=== PATIENT | female | born 1965 | race Native Hawaiian/Other Pacific Islander ===

== ENCOUNTER 2020-04-28 07:14 | Inpatient (IN) ==
[2020-04-28] MEDS ORDERED: Vancomycin 2,000 MG/520 ML IV.SOLN IVPB ONE (08:21)
[2020-04-28] MEDS ORDERED: Piperacillin/Tazobactam 3.375 GM in 0.9 % Sodium Chloride Mini Bag 100 ML IVPB ONE (08:21)
[2020-04-28 08:45] LABS: Basophils # 0.1 K/mcL (0.0-0.2); Basophils % 0.6 %; Eosinophils # 0.2 K/mcL (0.0-0.6); Hematocrit 37.9 % (35.3-44.9); Immature Granulocytes % 1.3 % (0-4); Lymphocytes # 2.4 K/mcL (0.6-4.6); Lymphocytes % 24.4 %; Mean Corpuscular HGB Conc 31.7 g/dL (31.6-35.5); Mean Corpuscular Hemoglobin 28.4 pg (28.0-33.3); Mean Corpuscular Volume 89.6 fL (83.0-100.0); Mean Platelet Volume 9.5 fL (9.4-12.4); Monocytes # 0.9 K/mcL (0.0-1.3); Monocytes % 9.3 %; Neutrophils # 6.1 K/mcL (1.6-8.9); Platelet Count 235 K/mcL (140-400); Red Blood Count 4.23 M/mcL (3.82-4.97); Red Cell Distribution Width 13.9 % (11.5-14.5); Segmented Neutrophils % 62.4 %; White Blood Count 9.8 K/mcL (4.3-11.1)
[2020-04-28 08:59] LABS: BUN/Creatinine Ratio 29 (6-26); Blood Urea Nitrogen 25 mg/dL (6-20); C-Reactive Protein 14 mg/L (Less than 10); Calcium 9.6 mg/dL (8.6-10.3); Carbon Dioxide 22 mEq/L (23-29); Chloride 102 mEq/L (98-107); Glucose 173 mg/dL (70-105); Osmolality,Calculated 289 (280-300); Potassium 4.3 mEq/L (3.5-5.1); Sodium 135 mEq/L (136-145); eGFR For African Americans > 60 (> 60); eGFR For Non-African Americans > 60 (> 60)
[2020-04-28] MEDS ORDERED: *HR* Promethazine 25 MG/ML VIAL IVP PRN (09:44)
[2020-04-28] MEDS ORDERED: Naloxone 0.4 MG/ML INJ IVP PRN (09:44)
[2020-04-28] MEDS ORDERED: *HR* Dextrose 50 % in Water (Vial) 50 ML VIAL IVP PRN (09:46)
[2020-04-28] MEDS ORDERED: D5% in Water 1,000 ML IVC PRN (09:46)
[2020-04-28] MEDS ORDERED: Dextrose Gel 15 GM/37.5 ML TUBE PO PRN ×2 (09:46)
[2020-04-28] MEDS ORDERED: Budesonide/Formoterol 80/4.5 1 PUFF INH IH PRN (10:20)
[2020-04-28] MEDS ORDERED: Albuterol 2.5 MG/3 ML NEBULIZER IH PRN (10:20)
[2020-04-28] MEDS: Gabapentin 300 MG CAPSULE PO SCH ×3 (12:29→21:49)
[2020-04-28] MEDS: *HR* HYDROcodone/Acet 5/325 mg TABLET PO PRN ×2 (12:29→21:49)
[2020-04-28] MEDS: 0.9 % Sodium Chloride 1,000 ML IVC SCH (16:00)
[2020-04-28] MEDS: Piperacillin/Tazobactam 3.375 GM in 0.9 % Sodium Chloride Mini Bag 100 ML IVPB SCH (17:13)
[2020-04-28] MEDS: Insulin LISPRO 300 UNITS/3 ML VIAL SQ SCH ×3 (17:14→21:53)
[2020-04-28] MEDS: *HR* Heparin 5,000 UNIT/ML VIAL SQ SCH ×2 (17:14→21:49)
[2020-04-28] MEDS: lamoTRIgine 100 MG TABLET PO SCH (21:48)
[2020-04-28] MEDS: traZODone 50 MG TABLET PO SCH (21:49)
[2020-04-28] MEDS: Vancomycin 2,000 MG/520 ML IV.SOLN IVPB SCH (21:54)
[2020-04-29] MEDS: Piperacillin/Tazobactam 3.375 GM in 0.9 % Sodium Chloride Mini Bag 100 ML IVPB SCH (00:37)
[2020-04-29 03:35] LABS: Basophils % 0.5 %; Eosinophils # 0.2 K/mcL (0.0-0.6); Eosinophils % 2.4 %; Hematocrit 37.1 % (35.3-44.9); Hemoglobin 11.5 g/dL (11.5-15.4); Immature Granulocytes % 1.2 % (0-4); Lymphocytes % 23.9 %; Mean Corpuscular Hemoglobin 28.4 pg (28.0-33.3); Mean Corpuscular Volume 91.6 fL (83.0-100.0); Mean Platelet Volume 9.8 fL (9.4-12.4); Monocytes # 0.8 K/mcL (0.0-1.3); Monocytes % 9.5 %; Neutrophils # 5.2 K/mcL (1.6-8.9); Platelet Count 234 K/mcL (140-400); Red Blood Count 4.05 M/mcL (3.82-4.97); Red Cell Distribution Width 13.8 % (11.5-14.5); Segmented Neutrophils % 62.5 %; White Blood Count 8.3 K/mcL (4.3-11.1)
[2020-04-29 03:52] LABS: BUN/Creatinine Ratio 26 (6-26); Blood Urea Nitrogen 20 mg/dL (6-20); Calcium 9.5 mg/dL (8.6-10.3); Carbon Dioxide 25 mEq/L (23-29); Chloride 103 mEq/L (98-107); Glucose 196 mg/dL (70-105); Osmolality,Calculated 294 (280-300); Potassium 4.3 mEq/L (3.5-5.1); Sodium 138 mEq/L (136-145); eGFR For African Americans > 60 (> 60); eGFR For Non-African Americans > 60 (> 60)
[2020-04-29] MEDS: 0.9 % Sodium Chloride 1,000 ML IVC SCH (04:38)
[2020-04-29] MEDS: *HR* Heparin 5,000 UNIT/ML VIAL SQ SCH ×3 (04:38→21:05)
[2020-04-29] MEDS: Ascorbic Acid 500 MG TABLET PO SCH (08:55)
[2020-04-29] MEDS: Cholecalciferol (D-3) 1,000 UNIT (25MCG) TABLET PO SCH (08:55)
[2020-04-29] MEDS: lisinopriL 20 MG TABLET PO SCH (08:55)
[2020-04-29] MEDS: *HR* HYDROcodone/Acet 5/325 mg TABLET PO PRN ×2 (08:55→16:13)
[2020-04-29] MEDS: Gabapentin 300 MG CAPSULE PO SCH ×4 (08:55→21:05)
[2020-04-29] MEDS: amLODIPine 5 MG TABLET PO SCH (08:55)
[2020-04-29] MEDS: Vancomycin 2,000 MG/520 ML IV.SOLN IVPB SCH ×2 (08:56→21:22)
[2020-04-29] MEDS: Cefepime HCl 2,000 MG in Water for inj. (sterile) 20 ML IVP SCH ×3 (08:57→23:34)
[2020-04-29] MEDS: Insulin LISPRO 300 UNITS/3 ML VIAL SQ SCH ×4 (08:58→21:23)
[2020-04-29] MEDS ORDERED: (Ezetimibe [Zetia] 10 MG) PO SCH (09:00)
[2020-04-29] MEDS ORDERED: LAMOTRIGINE 400 MG PO SCH (21:00)
[2020-04-29] MEDS: traZODone 50 MG TABLET PO SCH (21:05)
[2020-04-29] MEDS: lamoTRIgine 100 MG TABLET PO SCH (21:05)
[2020-04-29] MEDS ORDERED: Acetaminophen 325 MG TABLET PO ONE (21:27)
[2020-04-30] MEDS: *HR* Heparin 5,000 UNIT/ML VIAL SQ SCH ×3 (05:46→20:17)
[2020-04-30] MEDS: lisinopriL 20 MG TABLET PO SCH (08:15)
[2020-04-30] MEDS: Cholecalciferol (D-3) 1,000 UNIT (25MCG) TABLET PO SCH (08:15)
[2020-04-30] MEDS: Ascorbic Acid 500 MG TABLET PO SCH (08:15)
[2020-04-30] MEDS: amLODIPine 5 MG TABLET PO SCH (08:15)
[2020-04-30] MEDS: Gabapentin 300 MG CAPSULE PO SCH ×4 (08:16→20:16)
[2020-04-30] MEDS: Cefepime HCl 2,000 MG in Water for inj. (sterile) 20 ML IVP SCH ×2 (08:16→16:30)
[2020-04-30] MEDS: Vancomycin 2,000 MG/520 ML IV.SOLN IVPB SCH ×2 (08:16→20:31)
[2020-04-30] MEDS: Insulin LISPRO 300 UNITS/3 ML VIAL SQ SCH ×4 (08:17→20:18)
[2020-04-30] MEDS: *HR* HYDROcodone/Acet 5/325 mg TABLET PO PRN (09:08)
[2020-04-30 11:08] LABS: Estimated Average Glucose 192 mg/dl
[2020-04-30] MEDS: traZODone 50 MG TABLET PO SCH (20:16)
[2020-04-30] MEDS: lamoTRIgine 100 MG TABLET PO SCH (20:17)
[2020-05-01] MEDS: Cefepime HCl 2,000 MG in Water for inj. (sterile) 20 ML IVP SCH ×4 (00:25→23:21)
[2020-05-01] MEDS: *HR* HYDROcodone/Acet 5/325 mg TABLET PO PRN ×2 (00:34→13:43)
[2020-05-01 02:10] LABS: Hematocrit 34.7 % (35.3-44.9); Hemoglobin 11.2 g/dL (11.5-15.4); Mean Corpuscular HGB Conc 32.3 g/dL (31.6-35.5); Mean Corpuscular Hemoglobin 29.6 pg (28.0-33.3); Mean Corpuscular Volume 91.6 fL (83.0-100.0); Mean Platelet Volume 9.4 fL (9.4-12.4); Platelet Count 212 K/mcL (140-400); Red Blood Count 3.79 M/mcL (3.82-4.97); White Blood Count 7.6 K/mcL (4.3-11.1)
[2020-05-01 02:29] LABS: BUN/Creatinine Ratio 24 (6-26); Blood Urea Nitrogen 19 mg/dL (6-20); Calcium 9.3 mg/dL (8.6-10.3); Carbon Dioxide 27 mEq/L (23-29); Chloride 103 mEq/L (98-107); Glucose 175 mg/dL (70-105); Osmolality,Calculated 291 (280-300); Potassium 4.1 mEq/L (3.5-5.1); Sodium 137 mEq/L (136-145); eGFR For African Americans > 60 (> 60); eGFR For Non-African Americans > 60 (> 60)
[2020-05-01] MEDS: *HR* Heparin 5,000 UNIT/ML VIAL SQ SCH ×3 (06:17→20:20)
[2020-05-01] MEDS: Vancomycin 2,000 MG/520 ML IV.SOLN IVPB SCH ×2 (08:39→20:20)
[2020-05-01] MEDS: Gabapentin 300 MG CAPSULE PO SCH ×4 (08:40→20:19)
[2020-05-01] MEDS: Cholecalciferol (D-3) 1,000 UNIT (25MCG) TABLET PO SCH (08:41)
[2020-05-01] MEDS: amLODIPine 5 MG TABLET PO SCH (08:41)
[2020-05-01] MEDS: lisinopriL 20 MG TABLET PO SCH (08:41)
[2020-05-01] MEDS: Ascorbic Acid 500 MG TABLET PO SCH (08:41)
[2020-05-01] MEDS: Insulin LISPRO 300 UNITS/3 ML VIAL SQ SCH ×4 (09:47→20:21)
[2020-05-01] MEDS ORDERED: ROPIVACAINE/PF/NS 0.25% 1 EACH SYRINGE INTRAART ONE (17:10)
[2020-05-01] MEDS ORDERED: Lidocaine HCL 4 ML Topical Solution (Laryng-O-Jet Kit Sterile Pak) TP ONE (17:24)
[2020-05-01] MEDS ORDERED: *HR* Propofol 200 MG/20 ML VIAL IVP ONE ×2 (17:26→17:54)
[2020-05-01] MEDS ORDERED: *HR* FentaNYL (PF) 100 MCG/2 ML VIAL ONE (17:26)
[2020-05-01] MEDS ORDERED: Ondansetron 4 MG/2 ML VIAL ONE (17:27)
[2020-05-01] MEDS ORDERED: Dexamethasone 4 MG/ML VIAL ONE (17:27)
[2020-05-01] MEDS ORDERED: *HR* Rocuronium Bromide 50 MG/5 ML VIAL ONE (17:27)
[2020-05-01] MEDS ORDERED: Lidocaine -MPF 2% 2 ML VIAL ONE (17:27)
[2020-05-01] MEDS ORDERED: *HR* Succinylcholine 200 MG/10 ML VIAL IVP ONE (17:27)
[2020-05-01] MEDS ORDERED: Lidocaine -MPF 4% 5 ML AMPUL ONE (17:32)
[2020-05-01] MEDS ORDERED: Naloxone 0.4 MG/ML INJ IVP PRN ×3 (17:39→18:46)
[2020-05-01] MEDS ORDERED: *HR* FentaNYL (PF) 100 MCG/2 ML VIAL IVP PRN ×2 (17:39→18:46)
[2020-05-01] MEDS ORDERED: Albuterol 2.5 MG/3 ML NEBULIZER IH PRN ×3 (17:39→18:46)
[2020-05-01] MEDS ORDERED: Ondansetron 4 MG/2 ML VIAL IVP ONE ×2 (17:39→18:46)
[2020-05-01] MEDS ORDERED: *HR* Midazolam HCl 2 MG/2 ML VIAL ONE (17:40)
[2020-05-01] MEDS ORDERED: Budesonide/Formoterol 80/4.5 1 PUFF INH IH PRN (18:46)
[2020-05-01] MEDS ORDERED: *HR* Promethazine 25 MG/ML VIAL IVP PRN (18:46)
[2020-05-01] MEDS ORDERED: Dextrose Gel 15 GM/37.5 ML TUBE PO PRN ×2 (18:46)
[2020-05-01] MEDS ORDERED: *HR* Dextrose 50 % in Water (Vial) 50 ML VIAL IVP PRN (18:46)
[2020-05-01] MEDS ORDERED: D5% in Water 1,000 ML IVC PRN (18:46)
[2020-05-01] MEDS: lamoTRIgine 100 MG TABLET PO SCH (20:19)
[2020-05-01] MEDS: traZODone 50 MG TABLET PO SCH (23:07)
[2020-05-02] MEDS: *HR* Heparin 5,000 UNIT/ML VIAL SQ SCH ×3 (05:33→20:47)
[2020-05-02] MEDS: *HR* HYDROcodone/Acet 5/325 mg TABLET PO PRN ×2 (08:58→18:47)
[2020-05-02] MEDS: Cholecalciferol (D-3) 1,000 UNIT (25MCG) TABLET PO SCH (08:59)
[2020-05-02] MEDS: lisinopriL 20 MG TABLET PO SCH (08:59)
[2020-05-02] MEDS: amLODIPine 5 MG TABLET PO SCH (08:59)
[2020-05-02] MEDS: Cefepime HCl 2,000 MG in Water for inj. (sterile) 20 ML IVP SCH ×2 (09:00→16:42)
[2020-05-02] MEDS: Ascorbic Acid 500 MG TABLET PO SCH (09:00)
[2020-05-02] MEDS: Gabapentin 300 MG CAPSULE PO SCH ×4 (09:00→20:48)
[2020-05-02] MEDS: Insulin LISPRO 300 UNITS/3 ML VIAL SQ SCH ×4 (09:01→20:50)
[2020-05-02] MEDS: Vancomycin 2,000 MG/520 ML IV.SOLN IVPB SCH (11:42)
[2020-05-02] MEDS: traZODone 50 MG TABLET PO SCH (20:48)
[2020-05-02] MEDS: lamoTRIgine 100 MG TABLET PO SCH (20:48)
[2020-05-03] MEDS: Cefepime HCl 2,000 MG in Water for inj. (sterile) 20 ML IVP SCH ×3 (00:16→12:49)
[2020-05-03] MEDS: Vancomycin 2,000 MG/520 ML IV.SOLN IVPB SCH ×3 (00:17→23:19)
[2020-05-03 01:20] LABS: Hematocrit 35.1 % (35.3-44.9); Hemoglobin 11.1 g/dL (11.5-15.4); Mean Corpuscular HGB Conc 31.6 g/dL (31.6-35.5); Mean Corpuscular Hemoglobin 28.2 pg (28.0-33.3); Mean Corpuscular Volume 89.3 fL (83.0-100.0); Mean Platelet Volume 9.3 fL (9.4-12.4); Platelet Count 222 K/mcL (140-400); Red Blood Count 3.93 M/mcL (3.82-4.97); Red Cell Distribution Width 13.8 % (11.5-14.5); White Blood Count 7.1 K/mcL (4.3-11.1)
[2020-05-03 01:34] LABS: BUN/Creatinine Ratio 22 (6-26); Blood Urea Nitrogen 19 mg/dL (6-20); Calcium 9.8 mg/dL (8.6-10.3); Carbon Dioxide 26 mEq/L (23-29); Chloride 103 mEq/L (98-107); Glucose 170 mg/dL (70-105); Osmolality,Calculated 288 (280-300); Sodium 136 mEq/L (136-145); eGFR For African Americans > 60 (> 60); eGFR For Non-African Americans > 60 (> 60)
[2020-05-03] MEDS: *HR* Heparin 5,000 UNIT/ML VIAL SQ SCH ×3 (05:07→20:59)
[2020-05-03] MEDS: Insulin LISPRO 300 UNITS/3 ML VIAL SQ SCH ×4 (08:39→20:53)
[2020-05-03] MEDS: lisinopriL 20 MG TABLET PO SCH (08:40)
[2020-05-03] MEDS: Cholecalciferol (D-3) 1,000 UNIT (25MCG) TABLET PO SCH (08:40)
[2020-05-03] MEDS: Gabapentin 300 MG CAPSULE PO SCH ×4 (08:40→20:58)
[2020-05-03] MEDS: amLODIPine 5 MG TABLET PO SCH (08:40)
[2020-05-03] MEDS: Ascorbic Acid 500 MG TABLET PO SCH (08:40)
[2020-05-03] MEDS: metroNIDAZOLE 500 MG TABLET PO SCH ×3 (10:20→20:58)
[2020-05-03] MEDS: polyethylene glycoL 3350 17 GM POWD.PACK PO SCH (12:49)
[2020-05-03] MEDS: *HR* HYDROcodone/Acet 5/325 mg TABLET PO PRN (14:22)
[2020-05-03] MEDS: lamoTRIgine 100 MG TABLET PO SCH (20:59)
[2020-05-03] MEDS: traZODone 50 MG TABLET PO SCH (20:59)
[2020-05-04] MEDS: Cefepime HCl 2,000 MG in Water for inj. (sterile) 20 ML IVP SCH ×3 (01:35→23:20)
[2020-05-04 05:18] LABS: Hematocrit 36.2 % (35.3-44.9); Hemoglobin 11.4 g/dL (11.5-15.4); Mean Corpuscular HGB Conc 31.5 g/dL (31.6-35.5); Mean Corpuscular Hemoglobin 28.4 pg (28.0-33.3); Mean Platelet Volume 9.5 fL (9.4-12.4); Platelet Count 211 K/mcL (140-400); Red Blood Count 4.02 M/mcL (3.82-4.97); Red Cell Distribution Width 13.7 % (11.5-14.5); White Blood Count 6.7 K/mcL (4.3-11.1)
[2020-05-04] MEDS: *HR* Heparin 5,000 UNIT/ML VIAL SQ SCH ×3 (05:31→20:38)
[2020-05-04 05:36] LABS: BUN/Creatinine Ratio 32 (6-26); Blood Urea Nitrogen 23 mg/dL (6-20); Calcium 9.6 mg/dL (8.6-10.3); Carbon Dioxide 27 mEq/L (23-29); Chloride 103 mEq/L (98-107); Glucose 171 mg/dL (70-105); Osmolality,Calculated 292 (280-300); Potassium 4.2 mEq/L (3.5-5.1); Sodium 137 mEq/L (136-145); eGFR For African Americans > 60 (> 60); eGFR For Non-African Americans > 60 (> 60)
[2020-05-04] MEDS: Insulin LISPRO 300 UNITS/3 ML VIAL SQ SCH ×4 (07:45→20:28)
[2020-05-04] MEDS: Gabapentin 300 MG CAPSULE PO SCH ×4 (09:16→20:38)
[2020-05-04] MEDS: metroNIDAZOLE 500 MG TABLET PO SCH ×3 (09:16→20:39)
[2020-05-04] MEDS: Ascorbic Acid 500 MG TABLET PO SCH (09:16)
[2020-05-04] MEDS: amLODIPine 5 MG TABLET PO SCH (09:16)
[2020-05-04] MEDS: Cholecalciferol (D-3) 1,000 UNIT (25MCG) TABLET PO SCH (09:16)
[2020-05-04] MEDS: lisinopriL 20 MG TABLET PO SCH (09:17)
[2020-05-04] MEDS: Vancomycin 2,000 MG/520 ML IV.SOLN IVPB SCH (11:52)
[2020-05-04] MEDS: polyethylene glycoL 3350 17 GM POWD.PACK PO SCH (11:55)
[2020-05-04] MEDS: *HR* HYDROcodone/Acet 5/325 mg TABLET PO PRN (14:46)
[2020-05-04] MEDS: lamoTRIgine 100 MG TABLET PO SCH (20:38)
[2020-05-04] MEDS: traZODone 50 MG TABLET PO SCH (20:39)
[2020-05-05 03:14] LABS: Hematocrit 35.6 % (35.3-44.9); Hemoglobin 11.4 g/dL (11.5-15.4); Mean Corpuscular Hemoglobin 29.3 pg (28.0-33.3); Mean Corpuscular Volume 91.5 fL (83.0-100.0); Mean Platelet Volume 9.4 fL (9.4-12.4); Platelet Count 200 K/mcL (140-400); Red Blood Count 3.89 M/mcL (3.82-4.97); Red Cell Distribution Width 13.9 % (11.5-14.5); White Blood Count 6.9 K/mcL (4.3-11.1)
[2020-05-05 03:37] LABS: BUN/Creatinine Ratio 30 (6-26); Blood Urea Nitrogen 27 mg/dL (6-20); Calcium 9.7 mg/dL (8.6-10.3); Carbon Dioxide 25 mEq/L (23-29); Chloride 101 mEq/L (98-107); Glucose 170 mg/dL (70-105); Osmolality,Calculated 291 (280-300); Potassium 4.2 mEq/L (3.5-5.1); Sodium 136 mEq/L (136-145); eGFR For African Americans > 60 (> 60); eGFR For Non-African Americans > 60 (> 60)
[2020-05-05] MEDS: *HR* Heparin 5,000 UNIT/ML VIAL SQ SCH ×3 (05:25→20:37)
[2020-05-05] MEDS: Ascorbic Acid 500 MG TABLET PO SCH (07:55)
[2020-05-05] MEDS: Cholecalciferol (D-3) 1,000 UNIT (25MCG) TABLET PO SCH (07:55)
[2020-05-05] MEDS: amLODIPine 5 MG TABLET PO SCH (07:56)
[2020-05-05] MEDS: metroNIDAZOLE 500 MG TABLET PO SCH ×3 (07:56→20:35)
[2020-05-05] MEDS: lisinopriL 20 MG TABLET PO SCH (07:56)
[2020-05-05] MEDS: polyethylene glycoL 3350 17 GM POWD.PACK PO SCH (07:56)
[2020-05-05] MEDS: Gabapentin 300 MG CAPSULE PO SCH ×4 (07:56→20:35)
[2020-05-05] MEDS: Insulin LISPRO 300 UNITS/3 ML VIAL SQ SCH ×4 (07:56→20:36)
[2020-05-05] MEDS: Cefepime HCl 2,000 MG in Water for inj. (sterile) 20 ML IVP SCH (11:51)
[2020-05-05] MEDS: *HR* HYDROcodone/Acet 5/325 mg TABLET PO PRN (11:59)
[2020-05-05] MEDS: traZODone 50 MG TABLET PO SCH (20:35)
[2020-05-05] MEDS: lamoTRIgine 100 MG TABLET PO SCH (20:36)
[2020-05-06] MEDS: Cefepime HCl 2,000 MG in Water for inj. (sterile) 20 ML IVP SCH ×2 (02:06→12:30)
[2020-05-06] MEDS: *HR* Heparin 5,000 UNIT/ML VIAL SQ SCH (05:46)
[2020-05-06 08:49] VITALS: BP 124/85
[2020-05-06] MEDS: Insulin LISPRO 300 UNITS/3 ML VIAL SQ SCH ×2 (08:58→12:29)
[2020-05-06] MEDS: Ascorbic Acid 500 MG TABLET PO SCH (08:59)
[2020-05-06] MEDS: lisinopriL 20 MG TABLET PO SCH (08:59)
[2020-05-06] MEDS: polyethylene glycoL 3350 17 GM POWD.PACK PO SCH (08:59)
[2020-05-06] MEDS: amLODIPine 5 MG TABLET PO SCH (09:00)
[2020-05-06] MEDS: Cholecalciferol (D-3) 1,000 UNIT (25MCG) TABLET PO SCH (09:00)
[2020-05-06] MEDS: Gabapentin 300 MG CAPSULE PO SCH ×2 (09:00→12:31)
[2020-05-06] MEDS: metroNIDAZOLE 500 MG TABLET PO SCH (09:00)
== END 2020-05-06 14:16 | disposition home health service (06) | DRG 617 ==
LOC: EMEROOARM 07:14 → 2ANU 09:30 → SUATTDRO 09:30 → 2ANU 11:37
PROVIDERS: ADMIT Family Medicine; ATTEND Internal Medicine

== ENCOUNTER 2021-10-12 12:37 | Inpatient (IN) ==
[2021-10-12] MEDS ORDERED: Budesonide/Formoterol 80/4.5 1 PUFF INH IH PRN (16:06)
[2021-10-12] MEDS ORDERED: NON-FORMULARY MEDICATION 1 EACH EACH (Albuterol Sulfate 18 GM Hfa.Aer.Ad) IH PRN (16:06)
[2021-10-12] MEDS ORDERED: Albuterol 2.5 MG/3 ML NEBULIZER IH PRN (16:06)
[2021-10-12] MEDS ORDERED: Naloxone 0.4 MG/ML INJ IVP PRN (16:12)
[2021-10-12] MEDS ORDERED: D5% in Water 1,000 ML IVC PRN (16:19)
[2021-10-12] MEDS ORDERED: Dextrose Gel 15 GM/37.5 ML TUBE PO PRN ×2 (16:19)
[2021-10-12] MEDS ORDERED: *HR* Dextrose 50 % in Water (Syg) 50 ML SYRINGE IVP PRN (16:19)
[2021-10-12] MEDS: *HR* HYDROcodone/Acet 5/325 mg TABLET PO PRN (17:19)
[2021-10-12] MEDS: *HR* Heparin 5,000 UNIT/ML VIAL SQ SCH (17:19)
[2021-10-12] MEDS: Insulin LISPRO 300 UNITS/3 ML VIAL SUBQ SCH ×2 (17:20→20:39)
[2021-10-12] MEDS: Cefepime HCl 1,000 MG in 0.9 % Sodium Chloride Mini Bag 100 ML IVPB SCH (17:21)
[2021-10-12] MEDS: 0.9 % Sodium Chloride 1,000 ML IVC SCH (17:21)
[2021-10-12 18:42] LABS: BUN/Creatinine Ratio 16 (6-26); Blood Urea Nitrogen 14 mg/dL (6-20); eGFR For African Americans > 60 (> 60); eGFR For Non-African Americans > 60 (> 60)
[2021-10-12] MEDS: Vancomycin 2,000 MG/520 ML IV.SOLN IVPB SCH (20:39)
[2021-10-12] MEDS: lamoTRIgine 100 MG TABLET PO SCH (20:41)
[2021-10-13] MEDS: Cefepime HCl 1,000 MG in 0.9 % Sodium Chloride Mini Bag 100 ML IVPB SCH ×4 (00:24→23:32)
[2021-10-13] MEDS: Nystatin SUSP 5 ML UD.LIQ PO SCH ×5 (00:25→21:23)
[2021-10-13] MEDS: Ondansetron 4 MG/2 ML VIAL IVP PRN ×2 (03:27→13:00)
[2021-10-13] MEDS: *HR* HYDROcodone/Acet 5/325 mg TABLET PO PRN (04:14)
[2021-10-13 04:35] LABS: Hematocrit 34.2 % (35.3-44.9); Hemoglobin 11.1 g/dL (11.5-15.4); Mean Corpuscular HGB Conc 32.5 g/dL (31.6-35.5); Mean Corpuscular Hemoglobin 28.4 pg (28.0-33.3); Mean Corpuscular Volume 87.5 fL (83.0-100.0); Mean Platelet Volume 11.8 fL (9.4-12.4); Platelet Count 119 K/mcL (140-400); Red Blood Count 3.91 M/mcL (3.82-4.97); Red Cell Distribution Width 14.6 % (11.5-14.5); White Blood Count 8.4 K/mcL (4.3-11.1)
[2021-10-13 04:39] LABS: Alanine Aminotransferase 28 Units/L (7-52); Albumin 3.3 g/dL (3.5-5.7); Albumin/Globulin Ratio 0.9 (1.1-2.2); Alkaline Phosphatase 99 Units/L (34-104); Aspartate Amino Transferase 29 Units/L (13-39); BUN/Creatinine Ratio 20 (6-26); Bilirubin,Total 0.4 mg/dL (0.3-1.0); Blood Urea Nitrogen 14 mg/dL (6-20); Calcium 8.6 mg/dL (8.6-10.3); Carbon Dioxide 22 mEq/L (23-29); Chloride 103 mEq/L (98-107); Globulin 3.5 g/dL (2.4-3.5); Glucose 254 mg/dL (70-105); Osmolality,Calculated 291 (280-300); Potassium 3.7 mEq/L (3.5-5.1); Sodium 136 mEq/L (136-145); Total Protein 6.8 g/dL (6.4-8.9); eGFR For African Americans > 60 (> 60); eGFR For Non-African Americans > 60 (> 60)
[2021-10-13] MEDS: *HR* Heparin 5,000 UNIT/ML VIAL SQ SCH ×2 (05:05→16:48)
[2021-10-13 05:39] LABS: Lymphocytes # 1.7 K/mcL (0.6-4.6); Monocytes # 0.8 K/mcL (0.0-1.3); Neutrophils # 5.9 K/mcL (1.6-8.9)
[2021-10-13 05:40] LABS: Platelet Estimate Normal (Normal)
[2021-10-13] MEDS: Insulin LISPRO 300 UNITS/3 ML VIAL SUBQ SCH ×4 (09:01→21:21)
[2021-10-13] MEDS: 0.9 % Sodium Chloride 1,000 ML IVC SCH (09:02)
[2021-10-13] MEDS: Vancomycin 2,000 MG/520 ML IV.SOLN IVPB SCH ×2 (09:03→21:17)
[2021-10-13 10:43] LABS: Estimated Average Glucose 232 mg/dl; Hemoglobin A1C 9.7 %
[2021-10-13] MEDS ORDERED: NON-FORMULARY MEDICATION 1 EACH EACH (Fluticasone/Salmeterol [Advair Hfa 230-21 Mcg Inhale IH SCH (11:45)
[2021-10-13] MEDS ORDERED: Gadolinium Contrast Agent (WT Based) IV PRN (13:00)
[2021-10-13] MEDS: lisinopriL 20 MG TABLET PO SCH (13:04)
[2021-10-13 16:46] LABS: C-Reactive Protein 221 mg/L (Less than 10)
[2021-10-13] MEDS ORDERED: Insulin DETEMIR 100 UNIT/ML X5UNITS SUBQ SCH (21:00)
[2021-10-13] MEDS: lamoTRIgine 100 MG TABLET PO SCH (21:23)
[2021-10-13] MEDS ORDERED: Acetaminophen 325 MG TABLET PO ONE (23:19)
[2021-10-14] MEDS: *HR* Heparin 5,000 UNIT/ML VIAL SQ SCH ×2 (05:28→18:00)
[2021-10-14 07:48] LABS: Basophils % 0.4 %; Eosinophils # 0.1 K/mcL (0.0-0.6); Eosinophils % 0.9 %; Hematocrit 31.2 % (35.3-44.9); Immature Granulocytes % 2.3 % (0-4); Lymphocytes # 1.4 K/mcL (0.6-4.6); Lymphocytes % 15.3 %; Mean Corpuscular HGB Conc 32.1 g/dL (31.6-35.5); Mean Corpuscular Hemoglobin 28.4 pg (28.0-33.3); Mean Corpuscular Volume 88.6 fL (83.0-100.0); Mean Platelet Volume 10.5 fL (9.4-12.4); Monocytes # 0.8 K/mcL (0.0-1.3); Monocytes % 9.1 %; Neutrophils # 6.5 K/mcL (1.6-8.9); Platelet Count 157 K/mcL (140-400); Red Blood Count 3.52 M/mcL (3.82-4.97); Red Cell Distribution Width 14.6 % (11.5-14.5); White Blood Count 9.1 K/mcL (4.3-11.1)
[2021-10-14 08:03] LABS: Alanine Aminotransferase 34 Units/L (7-52); Albumin 3.2 g/dL (3.5-5.7); Alkaline Phosphatase 109 Units/L (34-104); Aspartate Amino Transferase 25 Units/L (13-39); BUN/Creatinine Ratio 15 (6-26); Bilirubin,Total 0.5 mg/dL (0.3-1.0); Blood Urea Nitrogen 10 mg/dL (6-20); Carbon Dioxide 25 mEq/L (23-29); Chloride 101 mEq/L (98-107); Globulin 3.3 g/dL (2.4-3.5); Glucose 269 mg/dL (70-105); Osmolality,Calculated 289 (280-300); Potassium 3.3 mEq/L (3.5-5.1); Sodium 135 mEq/L (136-145); Total Protein 6.5 g/dL (6.4-8.9); eGFR For African Americans > 60 (> 60); eGFR For Non-African Americans > 60 (> 60)
[2021-10-14] MEDS: Insulin LISPRO 300 UNITS/3 ML VIAL SUBQ SCH ×4 (09:35→21:05)
[2021-10-14] MEDS: Cefepime HCl 1,000 MG in 0.9 % Sodium Chloride Mini Bag 100 ML IVPB SCH ×3 (09:36→23:42)
[2021-10-14] MEDS: Aspirin Enteric Coated 81 MG Tablet PO SCH (09:37)
[2021-10-14] MEDS: Nystatin SUSP 5 ML UD.LIQ PO SCH ×4 (09:37→21:12)
[2021-10-14] MEDS: lisinopriL 20 MG TABLET PO SCH (09:37)
[2021-10-14] MEDS: amLODIPine 5 MG TABLET PO SCH (09:38)
[2021-10-14] MEDS: Vancomycin 2,000 MG/520 ML IV.SOLN IVPB SCH (11:22)
[2021-10-14] MEDS ORDERED: Gadolinium Contrast Agent (WT Based) IV PRN (11:41)
[2021-10-14] MEDS ORDERED: GADOBUTROL 30 MMOL/30 ML VIAL IVP ONE (12:33)
[2021-10-14] MEDS: *HR* HYDROcodone/Acet 5/325 mg TABLET PO PRN (15:55)
[2021-10-14] MEDS ORDERED: Insulin DETEMIR 100 UNIT/ML X5UNITS SUBQ SCH (21:00)
[2021-10-14] MEDS: lamoTRIgine 100 MG TABLET PO SCH (21:05)
[2021-10-14] MEDS ORDERED: Acetaminophen 325 MG TABLET PO ONE (21:09)
[2021-10-14] MEDS: polyethylene glycoL 3350 17 GM POWD.PACK PO PRN (23:32)
[2021-10-15] MEDS: *HR* Heparin 5,000 UNIT/ML VIAL SQ SCH ×2 (05:10→17:11)
[2021-10-15] MEDS: Vancomycin 2,000 MG/520 ML IV.SOLN IVPB SCH ×2 (05:10→18:34)
[2021-10-15 07:10] LABS: Alanine Aminotransferase 37 Units/L (7-52); Albumin 3.4 g/dL (3.5-5.7); Alkaline Phosphatase 135 Units/L (34-104); Aspartate Amino Transferase 28 Units/L (13-39); BUN/Creatinine Ratio 16 (6-26); Bilirubin,Total 0.7 mg/dL (0.3-1.0); Blood Urea Nitrogen 11 mg/dL (6-20); Calcium 9.2 mg/dL (8.6-10.3); Carbon Dioxide 26 mEq/L (23-29); Chloride 99 mEq/L (98-107); Globulin 3.5 g/dL (2.4-3.5); Glucose 286 mg/dL (70-105); Osmolality,Calculated 292 (280-300); Potassium 3.5 mEq/L (3.5-5.1); Sodium 136 mEq/L (136-145); Total Protein 6.9 g/dL (6.4-8.9); eGFR For African Americans > 60 (> 60); eGFR For Non-African Americans > 60 (> 60)
[2021-10-15] MEDS: amLODIPine 5 MG TABLET PO SCH (07:27)
[2021-10-15] MEDS: lisinopriL 20 MG TABLET PO SCH (07:27)
[2021-10-15] MEDS: Cefepime HCl 1,000 MG in 0.9 % Sodium Chloride Mini Bag 100 ML IVPB SCH ×3 (07:27→23:17)
[2021-10-15] MEDS: Aspirin Enteric Coated 81 MG Tablet PO SCH (07:27)
[2021-10-15] MEDS: Nystatin SUSP 5 ML UD.LIQ PO SCH ×4 (07:33→20:01)
[2021-10-15] MEDS: Insulin LISPRO 300 UNITS/3 ML VIAL SUBQ SCH ×4 (07:40→19:53)
[2021-10-15 10:29] LABS: Eosinophils # 0.1 K/mcL (0.0-0.6); Hematocrit 32.1 % (35.3-44.9); Hemoglobin 9.9 g/dL (11.5-15.4); Mean Corpuscular HGB Conc 30.8 g/dL (31.6-35.5); Mean Corpuscular Hemoglobin 27.2 pg (28.0-33.3); Mean Corpuscular Volume 88.2 fL (83.0-100.0); Mean Platelet Volume 10.3 fL (9.4-12.4); Nucleated Red Blood Cells 0.4 /100 WBC (0); Platelet Count 193 K/mcL (140-400); Red Blood Count 3.64 M/mcL (3.82-4.97); Red Cell Distribution Width 14.6 % (11.5-14.5); White Blood Count 10.3 K/mcL (4.3-11.1)
[2021-10-15 10:51] LABS: Lymphocytes # 2.7 K/mcL (0.6-4.6); Monocytes # 0.6 K/mcL (0.0-1.3); Neutrophils # 6.7 K/mcL (1.6-8.9)
[2021-10-15 10:53] LABS: Large Platelets Present (Not Present); Platelet Estimate Normal (Normal); Toxic Granulation Present (Not Present)
[2021-10-15] MEDS: *HR* HYDROcodone/Acet 5/325 mg TABLET PO PRN ×2 (11:46→18:35)
[2021-10-15] MEDS: polyethylene glycoL 3350 17 GM POWD.PACK PO PRN (15:08)
[2021-10-15] MEDS: Insulin DETEMIR 100 UNIT/ML X5UNITS SUBQ SCH (20:01)
[2021-10-15] MEDS: lamoTRIgine 100 MG TABLET PO SCH (20:01)
[2021-10-16] MEDS: Vancomycin 2,000 MG/520 ML IV.SOLN IVPB SCH ×2 (05:08→18:43)
[2021-10-16] MEDS: *HR* Heparin 5,000 UNIT/ML VIAL SQ SCH ×2 (05:08→18:03)
[2021-10-16] MEDS: Nystatin SUSP 5 ML UD.LIQ PO SCH ×4 (08:43→21:20)
[2021-10-16] MEDS: amLODIPine 5 MG TABLET PO SCH (08:43)
[2021-10-16] MEDS: lisinopriL 20 MG TABLET PO SCH (08:43)
[2021-10-16] MEDS: Aspirin Enteric Coated 81 MG Tablet PO SCH (08:43)
[2021-10-16] MEDS: Insulin LISPRO 300 UNITS/3 ML VIAL SUBQ SCH ×4 (08:44→21:35)
[2021-10-16] MEDS: Cefepime HCl 1,000 MG in 0.9 % Sodium Chloride Mini Bag 100 ML IVPB SCH ×2 (08:44→18:04)
[2021-10-16] MEDS: *HR* HYDROcodone/Acet 5/325 mg TABLET PO PRN (08:47)
[2021-10-16] MEDS: polyethylene glycoL 3350 17 GM POWD.PACK PO PRN (08:47)
[2021-10-16] MEDS ORDERED: Acetaminophen 325 MG TABLET PO PRN (11:55)
[2021-10-16] MEDS: *HR* OxyCODONE Immed Rel 5 MG TABLET PO PRN (18:03)
[2021-10-16] MEDS: lamoTRIgine 100 MG TABLET PO SCH (21:17)
[2021-10-16] MEDS: Insulin DETEMIR 100 UNIT/ML X5UNITS SUBQ SCH (21:35)
[2021-10-17] MEDS: Cefepime HCl 1,000 MG in 0.9 % Sodium Chloride Mini Bag 100 ML IVPB SCH ×2 (00:02→08:16)
[2021-10-17] MEDS: *HR* Heparin 5,000 UNIT/ML VIAL SQ SCH ×2 (05:47→16:50)
[2021-10-17] MEDS: Vancomycin 2,000 MG/520 ML IV.SOLN IVPB SCH ×2 (06:49→16:55)
[2021-10-17] MEDS: amLODIPine 5 MG TABLET PO SCH (08:15)
[2021-10-17] MEDS: *HR* OxyCODONE Immed Rel 5 MG TABLET PO PRN ×2 (08:15→21:22)
[2021-10-17] MEDS: Aspirin Enteric Coated 81 MG Tablet PO SCH (08:16)
[2021-10-17] MEDS: Insulin LISPRO 300 UNITS/3 ML VIAL SUBQ SCH ×4 (08:16→21:40)
[2021-10-17] MEDS: Nystatin SUSP 5 ML UD.LIQ PO SCH ×4 (08:16→21:15)
[2021-10-17] MEDS: lisinopriL 20 MG TABLET PO SCH (08:16)
[2021-10-17 15:44] LABS: Bacteria,Urine Few per hpf (None-Few); Bilirubin,Urine Negative (Negative); Blood,Urine Negative (Negative); Clarity,Urine Clear (Clear); Color,Urine Light-Yellow (Yellow); Glucose,Urine (UA) Normal (Normal); Ketones,Urine Negative (Negative); Leukocyte Esterase,Urine Negative (Negative); Mucus,Urine Few per lpf (None-Few); Nitrite,Urine Negative (Negative); Protein,Urine 30 mg/dL (Neg-Trace); RBC,Urine 0-3 per hpf (0-3); Specific Gravity,Urine 1.022 (1.010-1.025); Squamous Epithelial Cell,Urine Few per hpf (None-Few); Urobilinogen,Urine Normal (Normal); WBC,Urine 0-3 per hpf (0-3)
[2021-10-17] MEDS: lamoTRIgine 100 MG TABLET PO SCH (21:16)
[2021-10-17] MEDS: Insulin DETEMIR 100 UNIT/ML X5UNITS SUBQ SCH (21:41)
[2021-10-18] MEDS: *HR* OxyCODONE Immed Rel 5 MG TABLET PO PRN (03:14)
[2021-10-18] MEDS: *HR* Heparin 5,000 UNIT/ML VIAL SQ SCH ×2 (05:06→17:29)
[2021-10-18] MEDS: Vancomycin 2,000 MG/520 ML IV.SOLN IVPB SCH (05:07)
[2021-10-18] MEDS: Nystatin SUSP 5 ML UD.LIQ PO SCH ×4 (08:04→21:21)
[2021-10-18] MEDS ORDERED: Perflutren Lipid Microsphere 1.3 ML in 0.9 % Sodium Chloride 8.7 ML IVP PRN ×2 (08:04→14:19)
[2021-10-18] MEDS: amLODIPine 5 MG TABLET PO SCH (08:04)
[2021-10-18] MEDS: lisinopriL 20 MG TABLET PO SCH (08:04)
[2021-10-18] MEDS: Aspirin Enteric Coated 81 MG Tablet PO SCH (08:04)
[2021-10-18] MEDS: Insulin LISPRO 300 UNITS/3 ML VIAL SUBQ SCH ×4 (08:04→21:17)
[2021-10-18] MEDS: cephALEXin 500 MG CAPSULE PO SCH ×3 (12:42→21:17)
[2021-10-18] MEDS ORDERED: Isovue-370 500 ML BOTTLE IVP ONE (14:13)
[2021-10-18] MEDS: lamoTRIgine 100 MG TABLET PO SCH (21:17)
[2021-10-18] MEDS: Insulin DETEMIR 100 UNIT/ML X5UNITS SUBQ SCH (22:27)
[2021-10-19] MEDS: *HR* Heparin 5,000 UNIT/ML VIAL SQ SCH ×2 (05:34→16:55)
[2021-10-19 07:25] LABS: BUN/Creatinine Ratio 21 (6-26); Blood Urea Nitrogen 14 mg/dL (6-20); eGFR For African Americans > 60 (> 60); eGFR For Non-African Americans > 60 (> 60)
[2021-10-19] MEDS: cephALEXin 500 MG CAPSULE PO SCH ×4 (09:04→23:24)
[2021-10-19] MEDS: amLODIPine 5 MG TABLET PO SCH (09:04)
[2021-10-19] MEDS: lisinopriL 20 MG TABLET PO SCH (09:04)
[2021-10-19] MEDS: Aspirin Enteric Coated 81 MG Tablet PO SCH (09:04)
[2021-10-19] MEDS: Nystatin SUSP 5 ML UD.LIQ PO SCH ×4 (09:04→23:24)
[2021-10-19] MEDS: Insulin LISPRO 300 UNITS/3 ML VIAL SUBQ SCH ×4 (09:04→23:24)
[2021-10-19] MEDS ORDERED: Furosemide 40 MG/4 ML VIAL IVP ONE (09:07)
[2021-10-19] MEDS: levoFLOXacin 750 MG TABLET PO SCH (16:55)
[2021-10-19] MEDS: *HR* OxyCODONE Immed Rel 5 MG TABLET PO PRN (22:15)
[2021-10-19] MEDS: Insulin DETEMIR 100 UNIT/ML X5UNITS SUBQ SCH (23:24)
[2021-10-19] MEDS: lamoTRIgine 100 MG TABLET PO SCH (23:24)
[2021-10-20] MEDS: *HR* Heparin 5,000 UNIT/ML VIAL SQ SCH ×2 (06:24→17:40)
[2021-10-20] MEDS: Insulin LISPRO 300 UNITS/3 ML VIAL SUBQ SCH ×3 (08:15→17:40)
[2021-10-20] MEDS: amLODIPine 5 MG TABLET PO SCH (08:16)
[2021-10-20] MEDS: Nystatin SUSP 5 ML UD.LIQ PO SCH ×2 (08:16→12:46)
[2021-10-20] MEDS: Aspirin Enteric Coated 81 MG Tablet PO SCH (08:16)
[2021-10-20] MEDS: lisinopriL 20 MG TABLET PO SCH (08:16)
[2021-10-20] MEDS: cephALEXin 500 MG CAPSULE PO SCH ×3 (08:16→17:40)
[2021-10-20] MEDS: levoFLOXacin 750 MG TABLET PO SCH (08:16)
[2021-10-20 11:13] LABS: BUN/Creatinine Ratio 25 (6-26); Blood Urea Nitrogen 17 mg/dL (6-20); Calcium 9.5 mg/dL (8.6-10.3); Carbon Dioxide 28 mEq/L (23-29); Chloride 97 mEq/L (98-107); Glucose 237 mg/dL (70-105); Osmolality,Calculated 287 (280-300); Potassium 4.1 mEq/L (3.5-5.1); Sodium 134 mEq/L (136-145); eGFR For African Americans > 60 (> 60); eGFR For Non-African Americans > 60 (> 60)
[2021-10-20] MEDS: polyethylene glycoL 3350 17 GM POWD.PACK PO PRN (12:46)
[2021-10-20] MEDS: *HR* OxyCODONE Immed Rel 5 MG TABLET PO PRN (12:50)
[2021-10-20] MEDS ORDERED: Furosemide 40 MG/4 ML VIAL IVP ONE (12:53)
[2021-10-21] MEDS: Insulin DETEMIR 100 UNIT/ML X5UNITS SUBQ SCH (00:45)
[2021-10-21] MEDS: cephALEXin 500 MG CAPSULE PO SCH ×3 (00:45→14:16)
[2021-10-21] MEDS: Insulin LISPRO 300 UNITS/3 ML VIAL SUBQ SCH ×3 (00:45→12:03)
[2021-10-21] MEDS: lamoTRIgine 100 MG TABLET PO SCH (00:45)
[2021-10-21 05:24] LABS: Hematocrit 31.6 % (35.3-44.9); Hemoglobin 9.7 g/dL (11.5-15.4); Mean Corpuscular HGB Conc 30.7 g/dL (31.6-35.5); Mean Corpuscular Hemoglobin 27.3 pg (28.0-33.3); Platelet Count 286 K/mcL (140-400); Red Blood Count 3.55 M/mcL (3.82-4.97); Red Cell Distribution Width 14.3 % (11.5-14.5); White Blood Count 6.2 K/mcL (4.3-11.1)
[2021-10-21 05:50] LABS: BUN/Creatinine Ratio 24 (6-26); Blood Urea Nitrogen 20 mg/dL (6-20); Calcium 9.5 mg/dL (8.6-10.3); Carbon Dioxide 32 mEq/L (23-29); Chloride 96 mEq/L (98-107); Glucose 193 mg/dL (70-105); Osmolality,Calculated 286 (280-300); Potassium 4.2 mEq/L (3.5-5.1); Sodium 134 mEq/L (136-145); eGFR For African Americans > 60 (> 60); eGFR For Non-African Americans > 60 (> 60)
[2021-10-21] MEDS: *HR* Heparin 5,000 UNIT/ML VIAL SQ SCH (06:31)
[2021-10-21 06:48] VITALS: PULSE 72
[2021-10-21] MEDS: lisinopriL 20 MG TABLET PO SCH (08:04)
[2021-10-21] MEDS: amLODIPine 5 MG TABLET PO SCH (08:04)
[2021-10-21] MEDS: levoFLOXacin 750 MG TABLET PO SCH (08:05)
[2021-10-21] MEDS: Aspirin Enteric Coated 81 MG Tablet PO SCH (08:05)
[2021-10-21] MEDS: *HR* OxyCODONE Immed Rel 5 MG TABLET PO PRN (08:11)
[2021-10-21 11:26] VITALS: BP 100/60; TEMP 97.4; O2SAT 97
== END 2021-10-21 16:49 | disposition home or self-care (01) | DRG 871 ==
LOC: 3BNU → SUATTDRO 10-13 14:11
PROVIDERS: ADMIT General Practice; ATTEND Registered Nurse